=== PATIENT | male | born 1970 | race Caucasian/White ===

== ENCOUNTER 2021-11-01 14:12 | Inpatient (IN) | payer MEDICARE, OTHER ==
[~2021-11-01] VITALS: Ht 172.7 cm; Wt 64.9 kg
--- NOTE | 2021-11-01 14:50 | NUR ---
ADMISSION RN NOTES ADMITTED A 51 Y/O MALE TO UNIT AT 1430 VIA GURNEY ACCOMPANIED BY 2 ASSISTANT SPEECH LANGUAGE PATHOLOGIST FROM [facility] WITH DX SEVERE ANEMIA AND COLITIS. PT A/O X3, ABLE TO MAKE NEEDS KNOWN. PT NOTED WITH EPISODES OF SPACING OUT AT TIMES. PT ORIENTED TO STAFF AND UNIT. V/S TAKE AND RECORDED. PT ON RA, TOLERATING WELL. BREATHING EVEN AND UNLABORED. LUNGS CLEAR BILATERALLY ON AUSCULTATION. NOT IN ANY SIGN OF RESPIRATORY DISTRESS. PT PLACED ON CARDIAC TELE MONITOR WITH CURRENT READING OF SINUS TACH, HR 112. NO C/O CARDIAC DISTRESS VOICED AT THIS TIME. ABDOMEN SOFT AND NON-TENDER. BOWEL SOUNDS PRESENT IN ALL FOUR QUADRANTS. PT REFUSED BODY ASSESSMENT AND PHOTOS TO BE TAKEN WITH ANY SKIN ISSUES. IV ACCESS IN LAC G#20, INTACT AND PATENT WITH NS INFUSING AT 75ML/HR. SAFETY MEASURES INIATED: BED IN LOWEST AND LOCKED POSITION, SIDE RAILS UPX3, BED ALARM ON, AND CALL LIGHT WITHIN REACH. WILL CONTINUE TO MONITOR PATIENT.
[2021-11-01] MEDS ORDERED: MAGNESIUM HYDROXIDE 30 ML UDC PO PRN (15:30)
[2021-11-01] MEDS ORDERED: HYDROCODONE/APAP 5/325MG TABLET PO PRN (15:30)
[2021-11-01] MEDS ORDERED: ONDANSETRON HCL/PF 4 MG/2 ML VIAL IVP PRN (15:30)
[2021-11-01] MEDS ORDERED: MAG HYDROX/AL HYDROX/SIMETH 30 ML UDC PO PRN (15:30)
[2021-11-01] MEDS ORDERED: ACETAMINOPHEN 325 MG TABLET PO PRN (15:30)
[2021-11-01 15:45] LABS: BASOPHILS % (AUTO) 0.7 % (0.0-2.0); EOSINOPHILS % (AUTO) 1.2 % (0.0-6.0); HEMATOCRIT 28 % (39-51); HEMOGLOBIN 8.9 g/dL (13.5-17.5); LYMPHOCYTES # (AUTO) 0.5 K/uL (0.8-4.8); MEAN CORPUSCULAR HGB CONC 32 g/dl (31.0-36.0); MEAN CORPUSCULAR VOLUME 74 fL (80-96); MONOCYTES # (AUTO) 0.5 K/uL (0.1-1.30); MONOCYTES % (AUTO) 10.6 % (2.0-12.0); NEUTROPHILS # (AUTO) 3.8 K/uL (1.8-8.9); NEUTROPHILS % (AUTO) 77.5 % (43.0-81.0); PLATELET COUNT (AUTO) 486 K/uL (150-450); RED BLOOD CELL COUNT(AUTO) 3.81 MIL/uL (4.5-6.0)
[2021-11-01 16:00] VITALS: BP 112/81
[2021-11-01 16:09] LABS: CALCIUM, SERUM 8.5 mg/dL (8.5-10.1); CREATININE 0.7 mg/dL (0.6-1.3); POTASSIUM 3.4 mmol/L (3.5-5.1)
[2021-11-01] MEDS: IV NS 0.9% 1,000 ML IV PRN (17:08)
[2021-11-01] MEDS: ZOSYN IVPB 3.375 G in IV D5W 50ml IV SCH (18:10)
[2021-11-01] MEDS: PANTOPRAZOLE 40 MG VIAL IV SCH (18:10)
[2021-11-01] MEDS ORDERED: LEVE500T9 PO (19:29)
[2021-11-01] MEDS ORDERED: METF-440 PO (19:29)
[2021-11-01] MEDS ORDERED: LOPE-195 PO (19:29)
[2021-11-01] MEDS ORDERED: CHOL100043 PO (19:29)
[2021-11-01] MEDS ORDERED: TOPI100T38 PO (19:29)
[2021-11-01] MEDS ORDERED: GUAI100S11 PO (19:29)
[2021-11-01] MEDS ORDERED: ACET650S26 PO (19:29)
[2021-11-01] MEDS ORDERED: MEGE400O4 PO (19:29)
[2021-11-01] MEDS ORDERED: HALO10TA13 PO (19:29)
[2021-11-01] MEDS ORDERED: MAGN1TAB13 PO (19:29)
[2021-11-01] MEDS ORDERED: FERR325T23 PO (19:29)
[2021-11-01] MEDS ORDERED: QUET100T PO (19:29)
[2021-11-01] MEDS ORDERED: CALC500T63 PO (19:29)
[2021-11-01] MEDS ORDERED: AMIN30LI2 PO (19:29)
[2021-11-01] MEDS ORDERED: DRON2.5C18 PO (19:29)
[2021-11-01] MEDS ORDERED: BISA10SU11 RC (19:29)
[2021-11-01] MEDS ORDERED: MAGN400O6 PO (19:29)
[2021-11-01] MEDS ORDERED: CLON1TAB PO (19:29)
[2021-11-01] MEDS ORDERED: PANT40TA2 PO (19:29)
[2021-11-01] MEDS ORDERED: IBUP-1953 PO (19:29)
[2021-11-01] MEDS ORDERED: OMEP40CA21 PO (19:29)
[2021-11-01] MEDS ORDERED: ALEN70TA80 PO (19:29)
[2021-11-01] MEDS ORDERED: HEXY1LOZ4 MM (19:29)
--- NOTE | 2021-11-01 19:35 | NUR ---
BABYSITTER OPENING NOTE PATIENT AWAKE IN BED, ALERT/ORIENTED X 2, PATIENT "SPACES OUT" WHILE SPEAKING TO HIM, SLOW RESPONSES SPEAKING TO PATIENT. PATIENT STABLE ON RA, NO S/S OF DISTRESS OR SOB NOTED, BREATHING EVEN AND UNLABORED. PATIENT ON EXTERNAL DRAFTER MARINE READING SINUS TACHY, HR: 107. IV ACCESS ON LEFT HAND INTACT AND INFUSING NS @ 75 ML/HR. SAFETY MEASURES IN PLACE: CALL LIGHT WITHIN REACH, SIDE RAILS UP X 2, BED LOCKED IN LOWEST POSITION, BED ALARM ON. WILL CONTINUE TO MONITOR PATIENT
--- NOTE | 2021-11-01 19:39 | NUR ---
PLANTING SUPERVISOR CLOSING NOTE PT IN BED ASLEEP, EASILY AROUSED. PT A/O X3, ABLE TO MAKE NEEDS KNOWN. PT STILL NOTED WITH EPISODES OF SPACING OUT AT TIMES. PT ON RA, TOLERATING WELL. BREATHING EVEN AND UNLABORED. NOT IN ANY SIGN OF RESPIRATORY DISTRESS. PT ON CARDIAC TELE MONITOR WITH CURRENT READING OF SINUS TACH, HR 110. NO C/O CARDIAC DISTRESS VOICED AT THIS TIME. IV ACCESS IN LAC G#20, INTACT AND PATENT WITH NS INFUSING AT 75ML/HR. ALL NEEDS ATTENDED. KEPT CLEAN AND COMFORTABLE. SAFETY MEASURES INIATED: BED IN LOWEST AND LOCKED POSITION, SIDE RAILS UPX3, BED ALARM ON, AND CALL LIGHT WITHIN REACH. ENDORSED TO SIGNALER NURSE FOR PAO.
[2021-11-01 20:00] VITALS: BP 131/83
[2021-11-01] MEDS ORDERED: DEXTROSE 50%-WATER 50 ML DISP.SYRIN IV PRN (21:00)
[2021-11-01] MEDS ORDERED: GUAIFENESIN 300 MG/15 ML UDC PO PRN (21:00)
[2021-11-01 21:24] LABS: IRON, SERUM 10 ug/dl (50-175); TOTAL IRON BINDING CAPACITY 164 ug/dl (250-450)
[2021-11-01] MEDS: QUETIAPINE FUMARATE 100 MG TABLET PO SCH (21:54)
[2021-11-01] MEDS: LEVETIRACETAM (250 MG) 250 MG TABLET PO SCH (21:54)
--- NOTE | 2021-11-01 22:00 | NUR ---
CHINCHILLA MACHINE OPERATOR NOTE MRSA SWAB COLLECTED AND SENT TO LAB
[2021-11-01] MEDS: BLOOD SUGAR DIAGNOSTIC 1 EACH STRIP IN SCH (22:22)
[2021-11-02] VITALS: BP 118/68
[2021-11-02] MEDS: ZOSYN IVPB 3.375 G in IV D5W 50ml IV SCH ×5 (00:19→23:49)
[2021-11-02 07:07] LABS: BASOPHILS % (AUTO) 0.7 % (0.0-2.0); EOSINOPHILS % (AUTO) 0.8 % (0.0-6.0); HEMATOCRIT 23 % (39-51); HEMOGLOBIN 7.5 g/dL (13.5-17.5); LYMPHOCYTES # (AUTO) 0.4 K/uL (0.8-4.8); LYMPHOCYTES % (AUTO) 9.8 % (20.0-44.0); MEAN CORPUSCULAR HGB CONC 33 g/dl (31.0-36.0); MEAN CORPUSCULAR VOLUME 72 fL (80-96); MONOCYTES # (AUTO) 0.6 K/uL (0.1-1.30); MONOCYTES % (AUTO) 13.4 % (2.0-12.0); NEUTROPHILS # (AUTO) 3.3 K/uL (1.8-8.9); NEUTROPHILS % (AUTO) 75.3 % (43.0-81.0); PLATELET COUNT (AUTO) 429 K/uL (150-450); RED BLOOD CELL COUNT(AUTO) 3.19 MIL/uL (4.5-6.0); WHITE BLOOD COUNT (AUTO) 4.4 K/uL (4.3-11.0)
[2021-11-02] MEDS: BLOOD SUGAR DIAGNOSTIC 1 EACH STRIP IN SCH ×4 (07:13→22:09)
[2021-11-02 07:27] LABS: CALCIUM, SERUM 7.9 mg/dL (8.5-10.1); CREATININE 0.7 mg/dL (0.6-1.3); MAGNESIUM 1.7 mg/dL (1.8-2.4); PHOSPHORUS 3.3 mg/dL (2.5-4.9); POTASSIUM 2.9 mmol/L (3.5-5.1)
[2021-11-02] MEDS ORDERED: PANTOPRAZOLE 40 MG TABLET.DR PO SCH (07:30)
--- NOTE | 2021-11-02 07:34 | NUR ---
SOFTWARE CLERK CLOSING NOTE PATIENT AWAKE IN BED, ALERT/ORIENTED X 2, PATIENT NOTED WITH SLOW RESPONSES. PATIENT STABLE ON RA, NO S/S OF DISTRESS OR SOB NOTED, BREATHING EVEN AND UNLABORED. PATIENT ON EXTERNAL PUMP AND STILL OPERATOR READING SINUS TACHY, HR: 102. IV ACCESS ON RIGHT FOREARM #20G INTACT AND INFUSING NS @ 75 ML/HR. MEDICATIONS GIVEN ORDERED, PT NEEDS MET THROUGHOUT SHIFT. SAFETY MEASURES IN PLACE: CALL LIGHT WITHIN REACH, SIDE RAILS UP X 2, BED LOCKED IN LOWEST POSITION, BED ALARM ON. ENDORSED TO DAY SHIFT NURSE FOR CONTINUITY OF CARE
[2021-11-02 07:40] LABS: THYROID STIMULATING HORMONE 1.426 uIU/mL (0.358-3.74)
--- NOTE | 2021-11-02 07:40 | NUR ---
RN OPENING NOTE- PT AWAKE IN BED, ALERT/ORIENTED X PERSON PLACE, DISPLAYS CONFUSION AT TIMES, PATIENT STABLE ON RA, NO S/S OF DISTRESS OR SOB NOTED, BREATHING EVEN AND NON-LABORED. PATIENT ON EXTERNAL DERMATOLOGY TECHNICIAN READING SINUS TACHY, HR: 98. IV ACCESS ON LEFT HAND INTACT AND INFUSING NS @ 75 ML/HR. SAFETY MEASURES IN PLACE: CALL LIGHT WITHIN REACH, SIDE RAILS UP X 2, BED LOCKED IN LOWEST POSITION, BED ALARM ON. WILL CONTINUE TO MONITOR / ASSIST
[2021-11-02] MEDS: clonazePAM 1 MG TABLET PO SCH ×2 (08:33→17:16)
[2021-11-02] MEDS: TOPIRAMATE 100 MG TABLET PO SCH ×2 (08:33→17:17)
[2021-11-02] MEDS: METFORMIN 500 MG TABLET PO SCH ×2 (08:33→17:16)
[2021-11-02] MEDS: LEVETIRACETAM (250 MG) 250 MG TABLET PO SCH ×2 (08:33→20:14)
[2021-11-02] MEDS: PANTOPRAZOLE 40 MG VIAL IV SCH (08:33)
[2021-11-02] MEDS: FERROUS SULFATE (325 MG) 325 MG/TAB TABLET PO SCH ×2 (08:34→17:16)
[2021-11-02] MEDS: CALCIUM CARBONATE 500 MG TAB.CHEW PO SCH (08:34)
[2021-11-02] MEDS ORDERED: MAGNESIUM OXIDE 400 MG TABLET PO ONE (11:00)
[2021-11-02] MEDS: POTASSIUM CHLORIDE 20 MEQ POWDER PACKET PO SCH ×3 (11:13→13:30)
[2021-11-02] MEDS: INSULIN REGULAR, HUMAN 100 UNIT/ML 3 ML VIAL SQ PRN ×2 (11:40→17:29)
[2021-11-02] MEDS: IV NS 0.9% 1,000 ML IV PRN (11:46)
--- NOTE | 2021-11-02 18:31 | NUR ---
RN CLOSING NOTE- UNCHANGED, PT AWAKE IN BED, ALERT/ORIENTED X PERSON PLACE, DISPLAYS CONFUSION AT TIMES, PATIENT STABLE ON RA, NO S/S OF DISTRESS OR SOB NOTED, BREATHING EVEN AND NON-LABORED. PATIENT ON EXTERNAL MULTIPLE DRUM SANDER HELPER READING SINUS TACHY, HR: 90. IV ACCESS ON LEFT HAND INTACT AND INFUSING NS @ 75 ML/HR. SAFETY MEASURES IN PLACE: CALL LIGHT WITHIN REACH, SIDE RAILS UP X 2, BED LOCKED IN LOWEST POSITION, BED ALARM ON. WILL CONTINUE TO MONITOR / ASSIST
--- NOTE | 2021-11-02 19:36 | NUR ---
PEARL DIVER OPENING NOTE PATIENT SLEEPING IN BED, EASILY AWAKENED, ALERT/ORIENTED X 2, PATIENT NOTED WITH SLOW RESPONSES AND CONFUSION AT TIMES. PATIENT STABLE ON RA, NO S/S OF DISTRESS OR SOB NOTED, BREATHING EVEN AND UNLABORED. PATIENT ON EXTERNAL DONATION SPECIALIST READING SINUS TACHY, HR: 101. IV ACCESS ON RIGHT FOREARM #20G INTACT AND INFUSING NS @ 75 ML/HR. MEDICATIONS GIVEN ORDERED, PT NEEDS MET THROUGHOUT SHIFT. SAFETY MEASURES IN PLACE: CALL LIGHT WITHIN REACH, SIDE RAILS UP X 2, BED LOCKED IN LOWEST POSITION, BED ALARM ON. WILL CONTINUE TO MONITOR PATIENT
[2021-11-02 20:00] VITALS: BP 116/73
[2021-11-02] MEDS: QUETIAPINE FUMARATE 100 MG TABLET PO SCH (22:09)
[2021-11-03] VITALS: BP 118/65
[2021-11-03] MEDS: IV NS 0.9% 1,000 ML IV PRN (03:56)
[2021-11-03 04:00] VITALS: BP 98/68
[2021-11-03] MEDS: ZOSYN IVPB 3.375 G in IV D5W 50ml IV SCH ×3 (05:47→17:39)
[2021-11-03 06:49] LABS: BASOPHILS % (AUTO) 0.8 % (0.0-2.0); EOSINOPHILS % (AUTO) 2.2 % (0.0-6.0); HEMATOCRIT 23 % (39-51); HEMOGLOBIN 7.2 g/dL (13.5-17.5); LYMPHOCYTES # (AUTO) 0.6 K/uL (0.8-4.8); LYMPHOCYTES % (AUTO) 17.6 % (20.0-44.0); MEAN CORPUSCULAR HGB CONC 32 g/dl (31.0-36.0); MEAN CORPUSCULAR VOLUME 73 fL (80-96); MONOCYTES # (AUTO) 0.4 K/uL (0.1-1.30); MONOCYTES % (AUTO) 13.5 % (2.0-12.0); NEUTROPHILS # (AUTO) 2.1 K/uL (1.8-8.9); NEUTROPHILS % (AUTO) 65.9 % (43.0-81.0); PLATELET COUNT (AUTO) 368 K/uL (150-450); RED BLOOD CELL COUNT(AUTO) 3.13 MIL/uL (4.5-6.0); WHITE BLOOD COUNT (AUTO) 3.2 K/uL (4.3-11.0)
[2021-11-03] MEDS: BLOOD SUGAR DIAGNOSTIC 1 EACH STRIP IN SCH ×4 (07:03→22:41)
[2021-11-03 07:19] LABS: CALCIUM, SERUM 7.9 mg/dL (8.5-10.1); CREATININE 0.7 mg/dL (0.6-1.3); MAGNESIUM 1.7 mg/dL (1.8-2.4); POTASSIUM 2.9 mmol/L (3.5-5.1)
--- NOTE | 2021-11-03 07:25 | NUR ---
AWNINGS MECHANIC CLOSING NOTE PATIENT AWAKE IN BED, ALERT/ORIENTED X 2, PATIENT NOTED WITH SLOW RESPONSES. PATIENT STABLE ON RA, NO S/S OF DISTRESS OR SOB NOTED, BREATHING EVEN AND UNLABORED. PATIENT ON EXTERNAL SUPERVISOR CIGAR MAKING HAND READING SINUS RHYTHM/SINUS TACHY, CURRENT HR: 96. IV ACCESS ON RIGHT FOREARM #20G INTACT AND INFUSING NS @ 75 ML/HR. MEDICATIONS GIVEN ORDERED, PT NEEDS MET THROUGHOUT SHIFT. SAFETY MEASURES IN PLACE: CALL LIGHT WITHIN REACH, SIDE RAILS UP X 2, BED LOCKED IN LOWEST POSITION, BED ALARM ON. ENDORSED TO DAY SHIFT NURSE FOR CONTINUITY OF CARE
--- NOTE | 2021-11-03 07:45 | NUR ---
RN OPENING NOTE- PT AWAKE IN BED, ALERT/ORIENTED X PERSON PLACE, DISPLAYS CONFUSION AT TIMES, PATIENT STABLE ON RA, NO S/S OF DISTRESS OR SOB NOTED, BREATHING EVEN AND NON-LABORED. PATIENT ON EXTERNAL PAPER DELIVERER READING SINUS TACHY, HR: 90. IV ACCESS ON LEFT HAND INTACT AND INFUSING NS @ 75 ML/HR. SAFETY MEASURES IN PLACE: CALL LIGHT WITHIN REACH, SIDE RAILS UP X 2, BED LOCKED IN LOWEST POSITION, BED ALARM ON. WILL CONTINUE TO MONITOR / ASSIST
[2021-11-03] MEDS: PANTOPRAZOLE 40 MG VIAL IV SCH (08:59)
[2021-11-03] MEDS: METFORMIN 500 MG TABLET PO SCH ×2 (08:59→16:10)
[2021-11-03] MEDS: CALCIUM CARBONATE 500 MG TAB.CHEW PO SCH (09:00)
[2021-11-03] MEDS: TOPIRAMATE 100 MG TABLET PO SCH ×2 (09:00→16:11)
[2021-11-03] MEDS: FERROUS SULFATE (325 MG) 325 MG/TAB TABLET PO SCH ×2 (09:00→16:10)
[2021-11-03] MEDS: clonazePAM 1 MG TABLET PO SCH ×2 (09:00→16:10)
[2021-11-03] MEDS ORDERED: MAGNESIUM OXIDE 400 MG TABLET PO ONE (10:00)
[2021-11-03] MEDS ORDERED: POTASSIUM CHLORIDE 20 MEQ TAB.PRT.SR PO SCH (10:00)
[2021-11-03] MEDS: LEVETIRACETAM (250 MG) 250 MG TABLET PO SCH ×2 (10:09→22:27)
--- NOTE | 2021-11-03 11:30 | NUR ---
RN NOTE- CHANGED DIET TO SOFT DIET PER DR JIMENES
[2021-11-03] MEDS: INSULIN REGULAR, HUMAN 100 UNIT/ML 3 ML VIAL SQ PRN ×2 (12:00→17:27)
--- NOTE | 2021-11-03 18:35 | NUR ---
RN CLOSING NOTE- CONTACTED DR JIMENES ABOUT PENDING GI CONSULT. STILL AWAITING. PT ALERT ORIENTED PERSON PLACE. CONFUSED AT TIMES. STATES "I WANT TO GO HOME." EXPLAINED CURRENT MEDICAL TREATMENT STILL REQUIRED. PO INTAKE GOOD. NS IF FLUID INFUSING RT WRIST #18. BED LOCKED, SIDE RAILS UP X 4, BED ALARM ON. MONITOR /. ASSIST
--- NOTE | 2021-11-03 18:35 | NUR ---
RN NOTE- ASSISTED PT TO BSC. LARGE WATERY DARK BM.
[2021-11-03] MEDS ORDERED: PEG 3350/NA SULF,BICARB,CL/KCL 4,000 ML BOTTLE PO ONE (19:30)
[2021-11-03 20:00] VITALS: BP 121/76
--- NOTE | 2021-11-03 21:44 | NUR ---
MS/TELE/RN AT 2022, STARTED THE PEG, THE BOWEL PREP FOR THE COLONOSCOPY TOMORROW. THE PATIENT TOOK ABOUT HALF A CUP AND REFUSED TO DRINK ANYMORE STATING " I AM NOT GONNA HERE TOMORROW. UNABLE TO CONVINCE THE PATIENT TO DRINK THE PEG AT THIS TIME. AT 2044, CALLED THE SISTER/.CONSERVATOR, YOKO ULLOA AT TO OBTAIN CONSENT FOR THE COLONOSCOPY. CONSENT WAS OBTAINED WITH PHUONG KAPOOR, THE WITNESS. INFORMED THE SISTER ABOUT PATIENT NOT TAKING THE PEG, SISTER SPOKE TO THE PATIENT, BUT PATIENT STILL REFUSING TO DRINK. NOTIFIED DR. BUSH BY PHONE AT 2114, NOR ORDERS RECEIVED.WILL KEEP TRYING TO ASK THE PATIENT DRINK THE BOWEL PREP.
[2021-11-03] MEDS: QUETIAPINE FUMARATE 100 MG TABLET PO SCH (22:28)
[2021-11-04] VITALS: BP 99/55
[2021-11-04] MEDS: ZOSYN IVPB 3.375 G in IV D5W 50ml IV SCH ×4 (00:10→18:36)
[2021-11-04] MEDS: IV NS 0.9% 1,000 ML IV PRN ×2 (02:23→18:43)
[2021-11-04 04:00] VITALS: BP 99/58
--- NOTE | 2021-11-04 06:19 | NUR ---
MS/TELE/RN PATIENT IS AWAKE, ALERT, COMFORTABLE, NO SIGNS OF DISTRESS NOTED, ACCU CHECK [id number], PATIENT DID NOT DRINK THE PEG BOWEL PREP, DR. BUSH WAS MADE AWARE, ALL NEEDS ATTENDED AT THIS TIME, WILL CONTINUE TO MONITOR.
[2021-11-04 08:00] VITALS: BP 104/72
[2021-11-04] MEDS: METFORMIN 500 MG TABLET PO SCH ×2 (09:00→16:33)
[2021-11-04] MEDS: BLOOD SUGAR DIAGNOSTIC 1 EACH STRIP IN SCH ×4 (09:44→21:15)
[2021-11-04] MEDS: CALCIUM CARBONATE 500 MG TAB.CHEW PO SCH (09:45)
[2021-11-04] MEDS: PANTOPRAZOLE 40 MG VIAL IV SCH (09:45)
[2021-11-04] MEDS: FERROUS SULFATE (325 MG) 325 MG/TAB TABLET PO SCH ×2 (09:45→16:41)
[2021-11-04] MEDS: clonazePAM 1 MG TABLET PO SCH ×2 (09:53→17:26)
[2021-11-04] MEDS: TOPIRAMATE 100 MG TABLET PO SCH ×2 (09:53→16:41)
[2021-11-04] MEDS: LEVETIRACETAM (250 MG) 250 MG TABLET PO SCH ×2 (09:54→21:15)
[2021-11-04 09:57] LABS: BASOPHILS % (AUTO) 0.5 % (0.0-2.0); EOSINOPHILS % (AUTO) 1.4 % (0.0-6.0); HEMATOCRIT 22 % (39-51); HEMOGLOBIN 7.2 g/dL (13.5-17.5); LYMPHOCYTES # (AUTO) 0.6 K/uL (0.8-4.8); MEAN CORPUSCULAR HGB CONC 33 g/dl (31.0-36.0); MEAN CORPUSCULAR VOLUME 71 fL (80-96); MONOCYTES # (AUTO) 0.4 K/uL (0.1-1.30); MONOCYTES % (AUTO) 8.7 % (2.0-12.0); NEUTROPHILS # (AUTO) 3.7 K/uL (1.8-8.9); NEUTROPHILS % (AUTO) 76.4 % (43.0-81.0); PLATELET COUNT (AUTO) 397 K/uL (150-450); RED BLOOD CELL COUNT(AUTO) 3.07 MIL/uL (4.5-6.0); WHITE BLOOD COUNT (AUTO) 4.8 K/uL (4.3-11.0)
--- NOTE | 2021-11-04 10:03 | NUR ---
blood sugar low in am so mefformin witheld.
[2021-11-04 10:26] LABS: ALBUMIN 1.6 g/dL (3.4-5.0); BILIRUBIN,TOTAL 0.1 mg/dL (0.2-1.0); CALCIUM, SERUM 7.8 mg/dL (8.5-10.1); CREATININE 0.7 mg/dL (0.6-1.3); MAGNESIUM 1.6 mg/dL (1.8-2.4); PHOSPHORUS 2.8 mg/dL (2.5-4.9); POTASSIUM 3.2 mmol/L (3.5-5.1); TOTAL PROTEIN, SERUM 6.1 g/dL (6.4-8.2)
[2021-11-04] MEDS ORDERED: POTASSIUM CL. PREMIX PERIPHER. 50 ML IV SCH (11:30)
--- NOTE | 2021-11-04 11:35 | NUR ---
CALL OUT TO DR. MELENDREZ REGARDING LOW POTASSIUM AND MG. WELL LOW ALBUMIN.
--- NOTE | 2021-11-04 11:36 | NUR ---
PHARM. MADE AWARE OF LOW MG.AND POTASSIUM.
[2021-11-04 12:00] VITALS: BP 116/72
--- NOTE | 2021-11-04 12:06 | NUR ---
accu-check 69-given apple juice and 2 sugar pkts.
[2021-11-04] MEDS: Magnesium 1GM/D5W 100ML PREMIX 100 ML IV SCH ×2 (12:37→13:38)
--- NOTE | 2021-11-04 14:14 | NUR ---
pt. scheduled for potassium replacement and getting mg. replacement at this time.
[2021-11-04] MEDS: POTASSIUM CL. PREMIX PERIPHER. 50 ML IV SCH ×4 (14:43→17:33)
[2021-11-04 16:00] VITALS: BP 112/81
--- NOTE | 2021-11-04 16:07 | NUR ---
TOLERATING CLEAR LIQ.DIET,STATES WANTS MORE FOOD.
--- NOTE | 2021-11-04 16:34 | NUR ---
BGL LOW METFORMIN HELD.
--- NOTE | 2021-11-04 19:46 | NUR ---
RN OPENING NOTE PATIENT AWAKE IN BED. A/OX3. NO S/S OF DISTRESS, BREATHING ON ROOM AIR W/O DIFFICULTY. RFA #20 INTACT AND PATENT W/ NS 75 ML/HR. TELE MONITOR REVEALS [address] 102. SAFETY MEASURES IN PLACE: BED LOCKED, AT LOWEST POSITION, RAILS UP X3, CALL AVILA WITHIN REACH. WILL CONTINUE TO MONITOR PATIENT.
[2021-11-04 20:00] VITALS: BP 97/60
[2021-11-04] MEDS: QUETIAPINE FUMARATE 100 MG TABLET PO SCH (21:15)
[2021-11-04] MEDS: INSULIN REGULAR, HUMAN 100 UNIT/ML 3 ML VIAL SQ PRN (21:16)
[2021-11-05] VITALS: BP 110/64
[2021-11-05] MEDS: ZOSYN IVPB 3.375 G in IV D5W 50ml IV SCH ×5 (00:58→23:32)
[2021-11-05 04:00] VITALS: BP 106/68
[2021-11-05 06:35] LABS: BASOPHILS % (AUTO) 0.8 % (0.0-2.0); EOSINOPHILS % (AUTO) 2.6 % (0.0-6.0); HEMATOCRIT 26 % (39-51); HEMOGLOBIN 8.4 g/dL (13.5-17.5); LYMPHOCYTES # (AUTO) 0.6 K/uL (0.8-4.8); LYMPHOCYTES % (AUTO) 15.3 % (20.0-44.0); MEAN CORPUSCULAR HGB CONC 32 g/dl (31.0-36.0); MEAN CORPUSCULAR VOLUME 73 fL (80-96); MONOCYTES # (AUTO) 0.4 K/uL (0.1-1.30); MONOCYTES % (AUTO) 11.2 % (2.0-12.0); NEUTROPHILS # (AUTO) 2.8 K/uL (1.8-8.9); NEUTROPHILS % (AUTO) 70.1 % (43.0-81.0); PLATELET COUNT (AUTO) 425 K/uL (150-450); WHITE BLOOD COUNT (AUTO) 3.9 K/uL (4.3-11.0)
[2021-11-05] MEDS: INSULIN REGULAR, HUMAN 100 UNIT/ML 3 ML VIAL SQ PRN (06:52)
[2021-11-05] MEDS: BLOOD SUGAR DIAGNOSTIC 1 EACH STRIP IN SCH ×4 (06:52→22:28)
[2021-11-05 07:12] LABS: CALCIUM, SERUM 8.4 mg/dL (8.5-10.1); CREATININE 0.7 mg/dL (0.6-1.3); MAGNESIUM 2.2 mg/dL (1.8-2.4); POTASSIUM 3.7 mmol/L (3.5-5.1)
--- NOTE | 2021-11-05 07:32 | NUR ---
RN CLOSING NOTE PATIENT AWAKE IN BED. A/OX2. NO S/S OF DISTRESS; BREATHING ON RM AIR W/O DIFFICULTY. RFA #20 INTACT AND PATENT W/ NS 75ML/HR. TELE MONITOR REVEALS SR 77. BED LOCKED, AT LOWEST POSITION, RAILS UP X2, CALL AVILA WITHIN REACH. REPORT GIVEN TO AND ACKNOWLEDGED BY NIDHI HOU PAO.
[2021-11-05] MEDS: CALCIUM CARBONATE 500 MG TAB.CHEW PO SCH (09:58)
[2021-11-05] MEDS: METFORMIN 500 MG TABLET PO SCH ×2 (09:58→18:32)
[2021-11-05] MEDS: PANTOPRAZOLE 40 MG VIAL IV SCH (09:59)
[2021-11-05] MEDS: clonazePAM 1 MG TABLET PO SCH ×2 (09:59→18:32)
[2021-11-05] MEDS: TOPIRAMATE 100 MG TABLET PO SCH ×2 (09:59→18:33)
[2021-11-05] MEDS: LEVETIRACETAM (250 MG) 250 MG TABLET PO SCH ×2 (09:59→21:46)
[2021-11-05] MEDS: FERROUS SULFATE (325 MG) 325 MG/TAB TABLET PO SCH ×2 (09:59→18:32)
[2021-11-05 11:16] LABS: BAND % (MANUAL) 2 % (0.0-5.0); EOSINOPHILS % (MANUAL) 2 % (0-4); LYMPHOCYTES % (MANUAL) 16 % (16-48); MONOCYTES % (MANUAL) 5 % (0-11.0); NEUTROPHILS % (MANUAL) 75 (42-76)
--- NOTE | 2021-11-05 19:30 | NUR ---
RN OPENING NOTE RECEIVED PATIENT IN BED; AWAKE, ALERT AND ORIENTED X2. BREATHING IS EVEN AND NONLABORED. ON ROOM AIR, TOLERATING WELL. NOT IN ANY FORM OF RESPIRATORY DISTRESS. WITH IV ACCESS ON RIGHT FOREARM; PATENT, INTACT AND SALINE LOCKED. ON TELEMETRY MONITORING WITH READING OF SINUS RHYTHM HR-72 BPM. DENIES ANY PAIN OR DISCOMFORT OF THIS TIME. NEEDS ANTICIPATED AND ATTENDED TO. SAFETY MEASURES IMPLEMENTED: CALL LIGHT AND TABLE WITHIN EASY REACH, SIDE RAILS UP X3, HEAD OF BED ELEVATED, BED IN LOWEST LOCKED POSITION. WILL CONTINUE TO MONITOR.
[2021-11-05 20:00] VITALS: BP 111/73
[2021-11-05 20:21] VITALS: BP 111/73
--- NOTE | 2021-11-05 21:15 | NUR ---
RN NOTE PATIENT ANXIOUS AND COMBATIVE; KEPT ON REMOVING TELE BOX. TELE BOX PLACED ON STANDBY MODE.
[2021-11-05] MEDS: QUETIAPINE FUMARATE 100 MG TABLET PO SCH (21:46)
[2021-11-06] VITALS: BP 110/77
[2021-11-06 04:30] VITALS: BP 96/53
[2021-11-06 04:39] VITALS: BP 118/76
[2021-11-06] MEDS: ZOSYN IVPB 3.375 G in IV D5W 50ml IV SCH ×3 (05:39→18:00)
[2021-11-06] MEDS: BLOOD SUGAR DIAGNOSTIC 1 EACH STRIP IN SCH ×4 (05:59→21:10)
--- NOTE | 2021-11-06 06:48 | NUR ---
RN CLOSING NOTE PATIENT IS ASLEEP; LAYING COMFORTABLY IN BED; EASILY AROUSABLE. BREATHING EVENLY AND UNLABORED. STABLE ON ROOM AIR. IN NO ACUTE DISTRESS NOTED. WITH IV ACCESS ON RIGHT FOREARM; PATENT, INTACT AND SALINE LOCKED. ON TELEMETRY MONITORING; PATIENT REFUSED TO ATTACHED TELEBOX ON HIS BODY. DENIES ANY PAIN OR DISCOMFORT OF THIS TIME. ALL DUE MEDS GIVEN ORDERED. SAFETY MEASURES IN PLACE: HEAD OF BED ELEVATED @ 30 DEGREES, CALL LIGHT AND TABLE WITHIN EASY REACH, SIDE RAILS UP X3, BED IN LOWEST LOCKED POSITION. ENDORSED TO MORNING SHIFT FOR PAO.
[2021-11-06 06:57] LABS: BASOPHILS % (AUTO) 0.8 % (0.0-2.0); EOSINOPHILS % (AUTO) 2.1 % (0.0-6.0); HEMATOCRIT 23 % (39-51); HEMOGLOBIN 7.6 g/dL (13.5-17.5); LYMPHOCYTES # (AUTO) 0.6 K/uL (0.8-4.8); LYMPHOCYTES % (AUTO) 14.8 % (20.0-44.0); MEAN CORPUSCULAR HGB CONC 33 g/dl (31.0-36.0); MEAN CORPUSCULAR VOLUME 72 fL (80-96); MONOCYTES # (AUTO) 0.4 K/uL (0.1-1.30); MONOCYTES % (AUTO) 9.5 % (2.0-12.0); NEUTROPHILS # (AUTO) 3.1 K/uL (1.8-8.9); NEUTROPHILS % (AUTO) 72.8 % (43.0-81.0); PLATELET COUNT (AUTO) 404 K/uL (150-450); RED BLOOD CELL COUNT(AUTO) 3.23 MIL/uL (4.5-6.0); WHITE BLOOD COUNT (AUTO) 4.3 K/uL (4.3-11.0)
[2021-11-06 07:19] LABS: CALCIUM, SERUM 8.2 mg/dL (8.5-10.1); CREATININE 0.7 mg/dL (0.6-1.3); POTASSIUM 3.7 mmol/L (3.5-5.1)
--- NOTE | 2021-11-06 07:28 | NUR ---
WASH HOUSE SUPERVISOR OPENING NOTE RECEIVED PT IN BED AWAKE, A/O X2, WITH DELAYED RESPONSE. REORIENTED PT NEEDED. ON RA, TOLERATING WELL. BREATHING EVEN AND UNLABORED. NOT IN ANY SIGN OF RESPIRATORY DISTRESS. PT REFUSED TO PUT ON CARDIAC TELE MONITOR, EXPLAINED RISK AND BENEFITS, STILL STRONGLY REFUSED. NO C/O CARDIAC DISTRESS VOICED AT THIS TIME. IV ACCESS IN RFA G #20 INTACT AND PATENT. PT REFUSED FOR NS TO BE INFUSED AT THIS TIME. SAFETY MEASURES IN PLACE: BED IN LOWEST AND LOCKED POSITION, SIDE RAILS UPX2, AND CALL LIGHT WITHIN REACH. WILL CONTINUE TO MONITOR PT.
[2021-11-06] MEDS: CALCIUM CARBONATE 500 MG TAB.CHEW PO SCH (08:35)
[2021-11-06] MEDS: TOPIRAMATE 100 MG TABLET PO SCH ×2 (08:37→16:49)
[2021-11-06] MEDS: METFORMIN 500 MG TABLET PO SCH ×2 (08:37→16:49)
[2021-11-06] MEDS: FERROUS SULFATE (325 MG) 325 MG/TAB TABLET PO SCH ×2 (08:37→16:49)
[2021-11-06] MEDS: PANTOPRAZOLE 40 MG VIAL IV SCH (08:37)
[2021-11-06] MEDS: LEVETIRACETAM (250 MG) 250 MG TABLET PO SCH ×2 (08:37→21:10)
[2021-11-06] MEDS: clonazePAM 1 MG TABLET PO SCH ×2 (08:37→16:49)
[2021-11-06 11:25] LABS: EOSINOPHILS % (MANUAL) 2 % (0-4); LYMPHOCYTES % (MANUAL) 18 % (16-48); MONOCYTES % (MANUAL) 9 % (0-11.0); NEUTROPHILS % (MANUAL) 71 (42-76)
[2021-11-06] MEDS: INSULIN REGULAR, HUMAN 100 UNIT/ML 3 ML VIAL SQ PRN ×3 (11:56→21:10)
--- NOTE | 2021-11-06 14:00 | NUR ---
RN NOTE PT PULLED HIS IV OUT, TRIED TO REINSERT IV BUT PT STRONGLY REFUSED. PT WAS AGGRESSIVE AND COMBATIVE. CALLED DR. MELENDREZ AND LEFT MESSAGE, AWAITING FOR HIS CALLED BACK.
--- NOTE | 2021-11-06 15:05 | NUR ---
RN NOTE PT TRIED TO GET OUT OF BED. PT IS AGGRESSIVE AND COMBATIVE AND REFUSED TO GET BACK TO BED. CALLED DR. MELENDREZ AGAIN AND LEFT MESSAGE, AWAITING FOR A CALL BACK.
--- NOTE | 2021-11-06 15:24 | NUR ---
RN NOTE RECEIVED A CALL FROM DR. MELENDREZ, PER MD TO GIVE HALDOL 10MG PO ORDERED PRN AND MONITOR AT THIS TIME.
[2021-11-06] MEDS: HALOPERIDOL 5 MG TABLET PO PRN (15:26)
--- NOTE | 2021-11-06 19:22 | NUR ---
TOGGLER CLOSING NOTE PT IN BED AWAKE, A/O X2, WITH DELAYED RESPONSE. REORIENTED PT NEEDED. ON RA, TOLERATING WELL. BREATHING EVEN AND UNLABORED. NOT IN ANY SIGN OF RESPIRATORY DISTRESS. PT STILL CONTINUE TO REFUSED TO PUT ON CARDIAC TELE MONITOR, EXPLAINED RISK AND BENEFITS, STILL STRONGLY REFUSED. NO C/O CARDIAC DISTRESS VOICED AT THIS TIME. PT HAS NOT IV ACCESS AND STILL REFUSED THE IV REINSERTION, AWARE AND ENDORSED TO HOOP COILER NURSE TO TRY TO REINSERT IV. ALL NEEDS ATTENDED. KEPT CLEAN AND COMFORTABLE. SAFETY MEASURES IN PLACE: BED IN LOWEST AND LOCKED POSITION, SIDE RAILS UPX2, AND CALL LIGHT WITHIN REACH. ENDORSED TO HOOP COILER NURSE FOR PAO.
--- NOTE | 2021-11-06 19:34 | NUR ---
RN OPENING NOTE PATIENT AWAKE IN BED. A/OX2. NO S/S OF DISTRESS, BREATHING W/O DIFFICULTY ON RM AIR. IT WAS ENDORSED TO THIS RN BY THE DAY NURSE THAT THE PATIENT HAS REFUSED IV ACCESS AFTER HAVING PULLED HIS PREVIOUS LINE OUT. I WILL CONTINUE TO ENCOURAGE THE PATIENT TO HAVE ANOTHER IV INSERTED. PATIENT IS REFUSING TELE MONITOR. SAFETY MEASURES IN PLACE: BED LOCKED, AT LOWEST POSITION, RAILS UP X3, CALL AVILA WITHIN REACH. WILL CONTINUE TO MONITOR PATIENT.
[2021-11-06 20:00] VITALS: BP 116/74
[2021-11-06] MEDS ORDERED: OLANZAPINE 10 MG VIAL IM ONE (20:30)
--- NOTE | 2021-11-06 20:30 | NUR ---
RN NOTE PATIENT BECAME EXTREMELY AGITATED. HE HAD ALREADY RECEIVED HALDOL EARLIER IN THE DAY (~1530), SO I WAS UNABLE TO GIVE ANOTHER DOSE. PATIENT HAS BEEN REFUSING TREATMENT, IV ACCESS, AND TELE MONITOR. PATIENT STATED THAT I'D "BETTER GIVE" HIM HIS "CLOTHES, OR I'LL RUIN YOUR BIRTHDAY". ON-CALL, KOFFI, WAS CONTACTED. AN ORDER WAS GIVEN FOR ZYPREXA 5MG IM. PATIENT STABLE; WILL CONTINUE TO MONITOR PATIENT.
[2021-11-06] MEDS: QUETIAPINE FUMARATE 100 MG TABLET PO SCH (21:10)
[2021-11-07] VITALS: BP 132/97
[2021-11-07 04:00] VITALS: BP 121/74
[2021-11-07] MEDS: ZOSYN IVPB 3.375 G in IV D5W 50ml IV SCH ×4 (05:50→12:00)
--- NOTE | 2021-11-07 06:51 | NUR ---
RN CLOSING NOTE PATIENT AWAKE IN BED. A/OX2. NO S/S OF DISTRESS, BREATHING W/O DIFFICULTY ON RM AIR. NO IV ACCESS PATIENT CONTINUES TO DECLINE RE-INSERTION. PATIENT CONTINUES TO DECLINE TELE MONITOR. SAFETY MEASURES IN PLACE: BED LOCKED, IN LOWEST POSITION, RAILS UP X2, CALL AVILA WITHIN REACH. REPORT GIVEN TO AND ACKNOWLEDGED BY TRACY RNGREER, FOR PAO.
[2021-11-07] MEDS: INSULIN REGULAR, HUMAN 100 UNIT/ML 3 ML VIAL SQ PRN (07:04)
[2021-11-07] MEDS: BLOOD SUGAR DIAGNOSTIC 1 EACH STRIP IN SCH ×3 (07:04→16:36)
[2021-11-07 07:20] LABS: BASOPHILS % (AUTO) 0.3 % (0.0-2.0); EOSINOPHILS % (AUTO) 0.9 % (0.0-6.0); HEMATOCRIT 24 % (39-51); HEMOGLOBIN 7.9 g/dL (13.5-17.5); LYMPHOCYTES # (AUTO) 0.6 K/uL (0.8-4.8); LYMPHOCYTES % (AUTO) 11.2 % (20.0-44.0); MEAN CORPUSCULAR HGB CONC 32 g/dl (31.0-36.0); MEAN CORPUSCULAR VOLUME 72 fL (80-96); MONOCYTES # (AUTO) 0.5 K/uL (0.1-1.30); MONOCYTES % (AUTO) 9.1 % (2.0-12.0); NEUTROPHILS # (AUTO) 4.5 K/uL (1.8-8.9); NEUTROPHILS % (AUTO) 78.5 % (43.0-81.0); PLATELET COUNT (AUTO) 413 K/uL (150-450); RED BLOOD CELL COUNT(AUTO) 3.41 MIL/uL (4.5-6.0); WHITE BLOOD COUNT (AUTO) 5.7 K/uL (4.3-11.0)
--- NOTE | 2021-11-07 07:30 | NUR ---
PT RECEIVED RESTING COMFORTABLY IN BED. NO S/S OR C/O PAIN OR DISTRESS NOTED. SIDE RAILS UP X2, CALL LIGHT LEFT WITHIN REACH. WILL CONTINUE PLAN OF CARE.
[2021-11-07 08:00] VITALS: BP 110/72
[2021-11-07] MEDS: FERROUS SULFATE (325 MG) 325 MG/TAB TABLET PO SCH ×2 (08:23→16:36)
[2021-11-07] MEDS: clonazePAM 1 MG TABLET PO SCH ×2 (08:23→16:36)
[2021-11-07] MEDS: LEVETIRACETAM (250 MG) 250 MG TABLET PO SCH (08:23)
[2021-11-07] MEDS: METFORMIN 500 MG TABLET PO SCH ×2 (08:23→16:36)
[2021-11-07] MEDS: CALCIUM CARBONATE 500 MG TAB.CHEW PO SCH (08:23)
[2021-11-07] MEDS: TOPIRAMATE 100 MG TABLET PO SCH ×2 (08:23→16:36)
[2021-11-07] MEDS: PANTOPRAZOLE 40 MG VIAL IV SCH (08:24)
[2021-11-07 09:54] LABS: CALCIUM, SERUM 8.3 mg/dL (8.5-10.1); CREATININE 0.6 mg/dL (0.6-1.3); POTASSIUM 3.6 mmol/L (3.5-5.1)
[2021-11-07] MEDS: HALOPERIDOL 5 MG TABLET PO PRN (10:54)
[2021-11-07 12:00] VITALS: BP 126/84
[2021-11-07] MEDS ORDERED: LEVO500T90 PO (12:47)
[2021-11-07 16:00] VITALS: BP 103/66
--- NOTE | 2021-11-07 17:30 | NUR ---
PT DC TO SNF DISCHARGE INSTRUCTIONS GIVEN ORDERED. ALL QUESTIONS AND CONCERNS ADDRESSED. PATIENT VERBALIZED UNDERSTANDING. MEDICATION RECONCILIATION FORM COMPLETED, COPY GIVEN TO PATIENT. REPORT GIVEN TO ADELAIDE AT [facility]. PATIENT TRANSPORTED WITH ALL PERSONAL BELONGINGS. NO DISTRESS NOTED AT TIME OF DEPARTURE.
[2021-11-08] MEDS ORDERED: PANTOPRAZOLE 40 MG TABLET.DR PO SCH (09:00)
== END 2021-11-07 17:27 | DRG 378 ==
LOC: TELE 14:12 → MED 11-07 14:37
PROVIDERS: ATTEND Internal Medicine
DX: K92.2 Gastrointestinal hemorrhage, unspecified (principal); D68.69 Other thrombophilia; G40.909 Epilepsy, unspecified, not intractable, without status epilepticus; E11.9 Type 2 diabetes mellitus without complications; D50.9 Iron deficiency anemia, unspecified; E87.6 Hypokalemia; F20.9 Schizophrenia, unspecified; F32.A Depression, unspecified; M25.572 Pain in left ankle and joints of left foot; M25.571 Pain in right ankle and joints of right foot; Z79.84 Long term (current) use of oral hypoglycemic drugs; Z79.899 Other long term (current) drug therapy
CPT/HCPCS: 36415; 71045-TC; 73610-TC; 80048-TC; 80053-TC; 80061-TC; 82962-TC; 83540-TC; 83735-TC; 84100-TC; 84443-TC; 85025-TC; 85730-TC; 87081-TC; 93307-TC; 97116-TC; 97530-TC; C9113; G0378; J1815; J2543; J3475; J3480; J3490; J7030; J7060